=== PATIENT | male | born 1990 | race African-American/Black ===

== ENCOUNTER 2018-10-15 22:15 | Emergency (ER) | payer OTHER ==
[~2018-10-15] VITALS: Ht 188 cm; Wt 75.5 kg
[2018-10-15 22:59] LABS: BASOPHILS % (AUTO) 0.5 % (0-1); EOSINOPHILS # (AUTO) 0.5 X10'3 (0-0.9); EOSINOPHILS % (AUTO) 5.2 % (0-6); HEMATOCRIT 44.9 % (42.0-52.0); HEMOGLOBIN 15.1 g/dl (14.0-17.9); LYMPHOCYTES # (AUTO) 3.1 X10'3 (1.1-4.8); LYMPHOCYTES % (AUTO) 35.6 % (21-51); MEAN CORPUSCULAR HEMOGLOBIN 28.4 PG (27.0-31.0); MEAN CORPUSCULAR HGB CONC 33.6 g/dL (33.0-36.5); MEAN CORPUSCULAR VOLUME 84.4 FL (78-98); MEAN PLATELET VOLUME 8.4 FL (7.4-10.4); MONOCYTES # (AUTO) 0.6 X10'3 (0-0.9); MONOCYTES % (AUTO) 6.4 % (2-12); NEUTROPHILS # (AUTO) 4.6 X10'3 (1.8-7.7); NEUTROPHILS % (AUTO) 52.3 % (42-75); PLATELET COUNT 226 X10'3 (140-440); RED BLOOD COUNT 5.32 X10'6 (4.70-6.10); RED CELL DISTRIBUTION WIDTH 13.5 % (11.5-14.5); WHITE BLOOD COUNT 8.7 X10'3 (4.5-11.0)
[2018-10-15 23:12] LABS: ALANINE AMINOTRANSFERASE 48 U/L (12-78); ALBUMIN/GLOBULIN RATIO 1.1 (1.1-1.5); ALKALINE PHOSPHATASE 79 IU/L (46-116); ANION GAP 10 (8-16); ASPARTATE AMINO TRANSFERASE 22 U/L (10-37); BILIRUBIN,TOTAL 0.3 MG/DL (0.1-1.0); BLOOD UREA NITROGEN 16 MG/DL (7-18); BUN/CREATININE RATIO 14.7 (5.4-32.0); CALCIUM 9.2 MG/DL (8.5-10.1); CHLORIDE 103 MMOL/L (99-107); CREATININE 1.09 MG/DL (0.60-1.10); GLUCOSE 109 MG/DL (70-104); PARTIAL THROMBOPLASTIN TIME 28 SECONDS (22-32); POTASSIUM 3.8 MMOL/L (3.5-5.1); SODIUM 139 MMOL/L (135-145); TOTAL CARBON DIOXIDE 26.2 MMOL/L (24-32); TOTAL PROTEIN 7.6 G/DL (6.4-8.2); eGFR 81 ML/MIN
[2018-10-16 00:22] VITALS: BP 126/55
== END 2018-10-16 00:23 | disposition home or self-care (01) ==
LOC: ER 22:16
DX: R07.89 Other chest pain (principal); R61 Generalized hyperhidrosis
CPT/HCPCS: 36415; 71045; 80053; 84484; 85025; 85610; 85730; 93005; 99284

== ENCOUNTER 2018-11-17 02:32 | Emergency (ER) | payer MEDICAID ==
[~2018-11-17] VITALS: Ht 190.5 cm; Wt 100.0 kg
[2018-11-17 02:40] VITALS: BP 113/72
--- NOTE | 2018-11-17 02:53 | NUR ---
PT REQUESTING TO NO LONGER BE TREATED, PT IS ALERT AND ORIENTED X 4, PT WARNED OF THE RISKS OF LEAVING WITHOUT BEING SEEN BY AN MD BUT CONTINUED TO REFUSE TREATMENT. PT WALKED OUT OF ED.
== END 2018-11-17 02:57 | disposition left against medical advice (07) ==
LOC: ER 02:33
DX: R00.2 Palpitations (principal); Z53.21 Procedure and treatment not carried out due to patient leaving prior to being seen by health care provider
CPT/HCPCS: 93005

== ENCOUNTER 2020-07-20 10:15 | Emergency (ER) | payer MEDICAID ==
[~2020-07-20] VITALS: Ht 193 cm; Wt 86.4 kg
[2020-07-20 10:24] VITALS: BP 119/85
[2020-07-20] MEDS ORDERED: HYDR-3965 PO (10:39)
[2020-07-20] MEDS ORDERED: HYDROcodone/acetaminophen 5mg/325mg tablet PO ONE (10:40)
== END 2020-07-20 13:05 | disposition home or self-care (01) ==
LOC: ER 10:15
DX: S82.832A Other fracture of upper and lower end of left fibula, initial encounter for closed fracture (principal); M25.572 Pain in left ankle and joints of left foot; Z98.890 Other specified postprocedural states; Z79.899 Other long term (current) drug therapy; X58.XXXA Exposure to other specified factors, initial encounter; Y93.89 Activity, other specified; Y92.89 Other specified places as the place of occurrence of the external cause; Y99.8 Other external cause status
CPT/HCPCS: 29515; 73610; 99283

== ENCOUNTER 2021-09-27 11:56 | Emergency (ER) | payer MEDICAID, OTHER ==
[~2021-09-27] VITALS: Ht 193 cm; Wt 81.8 kg
[2021-09-27] MEDS ORDERED: LORazepam 1 MG tablet PO ONE (12:15)
[2021-09-27 12:26] LABS: BASOPHILS # (AUTO) 0.1 X10'3 (0-0.2); BASOPHILS % (AUTO) 0.5 % (0-1); EOSINOPHILS # (AUTO) 0.4 X10'3 (0-0.9); HEMATOCRIT 46.2 % (42.0-52.0); HEMOGLOBIN 15.5 g/dl (14.0-17.9); LYMPHOCYTES # (AUTO) 4.4 X10'3 (1.1-4.8); MEAN CORPUSCULAR HEMOGLOBIN 29.8 PG (27.0-31.0); MEAN CORPUSCULAR HGB CONC 33.5 g/dL (33.0-36.5); MEAN PLATELET VOLUME 7.3 FL (7.4-10.4); MONOCYTES # (AUTO) 0.7 X10'3 (0-0.9); MONOCYTES % (AUTO) 5.8 % (2-12); NEUTROPHILS # (AUTO) 6.7 X10'3 (1.8-7.7); NEUTROPHILS % (AUTO) 54.7 % (42-75); PLATELET COUNT 294 X10'3 (140-440); RED BLOOD COUNT 5.19 X10'6 (4.70-6.10); RED CELL DISTRIBUTION WIDTH 13.2 % (11.5-14.5); WHITE BLOOD COUNT 12.2 X10'3 (4.5-11.0)
[2021-09-27 12:50] LABS: ALANINE AMINOTRANSFERASE 18 U/L (12-78); ALBUMIN 4.1 G/DL (3.4-5.0); ALBUMIN/GLOBULIN RATIO 1.1 (1.1-1.5); ALKALINE PHOSPHATASE 67 IU/L (46-116); ASPARTATE AMINO TRANSFERASE 35 U/L (10-37); BILIRUBIN,TOTAL 1.8 MG/DL (0.1-1.0); BLOOD UREA NITROGEN 12 MG/DL (7-18); BUN/CREATININE RATIO 10.3 (5.4-32.0); CALCIUM 9.1 MG/DL (8.5-10.1); CHLORIDE 97 MMOL/L (99-107); CREATININE 1.16 MG/DL (0.60-1.10); GLUCOSE 82 MG/DL (70-104); LIPASE 201 U/L (73-393); TOTAL CARBON DIOXIDE 19.8 MMOL/L (24-32); eGFR 89 ML/MIN
[2021-09-27 12:52] LABS: ANION GAP 25 (8-16); SODIUM 142 MMOL/L (135-145)
[2021-09-27] MEDS ORDERED: potassium Cl 10 mEq/100mL bag IV ONE (13:05)
[2021-09-27] MEDS ORDERED: magnesium 2GM in 50ml NS 50 ML IV ONE (13:15)
[2021-09-27] MEDS ORDERED: potassium Cl 20 mEq SR tablet PO STA (13:15)
[2021-09-27] MEDS ORDERED: normal saline 1000ML IV soln IVB ONE (13:20)
[2021-09-27] MEDS ORDERED: CHLO25CA10 PO (14:07)
[2021-09-27 15:13] VITALS: BP 133/80
== END 2021-09-27 15:15 | disposition home or self-care (01) ==
LOC: ER 11:56
DX: F10.239 Alcohol dependence with withdrawal, unspecified (principal); F41.9 Anxiety disorder, unspecified; R45.1 Restlessness and agitation; Z98.890 Other specified postprocedural states; Z79.899 Other long term (current) drug therapy; Y90.9 Presence of alcohol in blood, level not specified
CPT/HCPCS: 36415; 80053; 82140; 83690; 85025; 93005; 96365; 99284; J3475; J3480; J7030